=== PATIENT | female | born 1995 | race Caucasian/White ===

== ENCOUNTER 2017-12-16 18:52 | Emergency (ER) | payer SELFPAY ==
--- NOTE | 2017-12-16 19:24 | EDM.PDOC ---
ED HPI GENERAL MEDICAL PROBLEM - General Chief Complaint: Lower Extremity Injury/Pain Stated Complaint: LEG INJURY Time Seen by Provider: 12/16/17 19:06 Source of Information: Reports: Patient, RN Notes Reviewed - History of Present Illness INITIAL COMMENTS - FREE TEXT/NARRATIVE: 22 year old female fell at work 3 days ago landing on R knee. Has had pain, swelling, still painful to walk, move knee. No other major injury from fall. Right Knee Pain Score (Numeric/FACES): 5 - Related Data Allergies Allergy/AdvReac Type Severity Reaction Status Date / Time No Known Allergies Allergy Verified 12/16/17 19:05 Home Meds: Home Meds . [No Known Home Meds] 12/16/17 [History] Past Medical History - Past Health History Medical/Surgical History: Denies Medical/Surgical History - Past Surgical History Musculoskeletal Surgical History: Reports: Shoulder Surgery Social & Family History - Family History Family Medical History: Noncontributory - Tobacco Use Smoking Status *Q: Current Every Day Smoker Years of Tobacco use: 2 Packs/Tins Daily: 0.5 - Caffeine Use Caffeine Use: Reports: None - Recreational Drug Use Recreational Drug Use: No Review of Systems - Review of Systems Review Of Systems: See Below Constitutional: Reports: No Symptoms Eyes: Reports: No Symptoms Respiratory: Denies: Shortness of Breath Cardiovascular: Denies: Chest Pain GI/Abdominal: Denies: Nausea, Vomiting Musculoskeletal: Reports: Joint Pain Skin: Reports: Bruising, Erythema Neurological: Denies: Numbness, Tingling ED EXAM, GENERAL - Physical Exam Exam: See Below General Appearance: Alert, No Apparent Distress Head: Atraumatic Neck: Supple Respiratory/Chest: No Respiratory Distress Extremities: Redness (anterior R knee), Other (there is tenderness, anterior, medial, lateral knee, pain with motion). No: Leg Pain, Increased Warmth Neurological: Alert, Oriented, No Motor/Sensory Deficits Skin Exam: Warm, Dry, Normal Color Course - Vital Signs Last Recorded V/S: Last Vital Signs Temp 98.1 F 12/16/17 20:16 Pulse 78 12/16/17 20:16 Resp 18 12/16/17 20:16 BP 110/50 L 12/16/17 19:02 Pulse Ox 97 12/16/17 20:16 - Re-Assessments/Exams Free Text/Narrative Re-Assessment/Exam: 12/16/17 20:02. X rays no fx. Departure - Departure Time of Disposition: 20:04 Disposition: Home, Self-Care 01 Condition: Fair Clinical Impression: Fall Qualifiers: Encounter type: initial encounter Qualified Code(s): W19.XXXA - Unspecified fall, initial encounter Knee contusion Qualifiers: Encounter type: initial encounter Laterality: right Qualified Code(s): S80.01XA - Contusion of right knee, initial encounter - Discharge Information Instructions: Contusion, [id number] Referrals: PCP,None [Primary Care Provider] - Forms: ED Department Discharge, ED Return to Work/School Form Additional Instructions: joana wrap R knee, continue to rest knee, ice packs as needed for swelling, advil or ibuprofen 2 to 3 times daily as needed, return to work Sunday as tolerated. Follow up clinic if not much better within 3 to 5 days as expected.
--- NOTE | 2017-12-17 13:11 | CR ---
Right knee: Four views of the right knee were obtained. Comparison: No prior knee exam. Medial and lateral joint compartments are maintained. No joint effusion is seen. No fracture or other bony abnormality is identified. Impression: 1. No abnormality is identified on right knee exam. Diagnostic code #1
== END 2017-12-16 20:16 | disposition home or self-care (01) ==
LOC: JD.ED 18:52
DX: S80.01XA Contusion of right knee, initial encounter (principal); F17.210 Nicotine dependence, cigarettes, uncomplicated; W19.XXXA Unspecified fall, initial encounter
CPT/HCPCS: 73564-26-RT; 73564-RT; 99283; 99284